=== PATIENT | female | born 1985 | race Two or more races ===

== ENCOUNTER 2023-11-25 20:54 | Emergency (ER) | payer OTHER, SELFPAY ==
[2023-11-25 21:06] VITALS: BP 111/86; PULSE 93; TEMP 37.6; O2SAT 100; BMI 23.6
--- NOTE | 2023-11-25 21:53 | ED.SKABFB1 ---
HPI - Skin/Abscess/Foreign Bdy General Chief complaint: Skin/Abscess/Foreign Body Stated complaint: LUMP Time Seen by Provider: 11/25/23 21:43 Source: patient Mode of arrival: walk-in Limitations: no limitations History of Present Illness HPI narrative: This 38-year-old female who has had axillary abscesses in the past presents for evaluation of a tender abscess in her right axilla. She states she has been using warm compresses but it has not opened up yet. She refuses incision and drainage but states she wishes to have some antibiotics to see if it will help it open up. She also has upper respiratory symptoms with cough, congestion and mild frontal headache. She has no chest pain or shortness of breath. She is being seen in conjunction with her daughter who has similar symptoms. She denies the possibility of . Related Data Home Medications ?Medication ?Instructions ?Recorded ?Confirmed No Known Home Medications 11/25/23 11/25/23 Allergies Allergy/AdvReac Type Severity Reaction Status Date / Time No Known Drug Allergies Allergy Verified 11/25/23 21:06 Review of Systems ROS Status of ROS 10 or more systems reviewed and unremarkable except as noted in history and below Exam Narrative Exam Narrative: Vital signs and Nursing Notes reviewed: Patient is afebrile with a normal pulse, normal blood pressure, she is not hypoxic with pulse ox of 100% on room air General: Awake, alert, oriented, no acute distress, lying comfortably on the stretcher HEENT: Normocephalic atraumatic, mucous membranes are moist and pink, eyes are clear, normal conjunctiva, vision is grossly intact, audible nasal congestion Neck: Supple, no meningeal signs, no anterior or posterior cervical lymphadenopathy Chest: Lungs are clear to auscultation with good air entry, there is no wheezing rhonchi or rales appreciated no accessory muscle use, patient is speaking in complete sentences-no chest wall tenderness to palpation CVS: Regular rate and rhythm S1-S2, no murmurs rubs or gallops, pulses are brisk and equal bilaterally ABD: Soft, nondistended, nontender, no rebound guarding or rigidity, bowel sounds are normal, no pulsatile masses appreciated Extremities: There is a tender, soft, fluctuant abscess in the right axilla, no local cellulitis or lymphangitic streaking noted, no appreciable lymphadenopathy Skin: Axillary abscess as described above Neuro: No focal deficits Constitutional Vital Signs, click to edit/add: Last Vital Signs Temp 99.6 F 11/25/23 21:06 Pulse 93 H 11/25/23 21:06 Resp 18 11/25/23 21:06 BP 111/86 11/25/23 21:06 Pulse Ox 100 11/25/23 21:06 O2 Del Method Room Air 11/25/23 21:06 Course Vital Signs Vital signs: Vital Signs Temperature 99.6 F 11/25/23 21:06 Pulse Rate 93 H 11/25/23 21:06 Respiratory Rate 18 11/25/23 21:06 Blood Pressure 111/86 11/25/23 21:06 Pulse Oximetry 100 11/25/23 21:06 Oxygen Delivery Method Room Air 11/25/23 21:06 Temperature 99.6 F 11/25/23 21:06 Pulse Rate 93 H 11/25/23 21:06 Respiratory Rate 18 11/25/23 21:06 Blood Pressure 111/86 11/25/23 21:06 Pulse Oximetry 100 11/25/23 21:06 Oxygen Delivery Method Room Air 11/25/23 21:06 MDM - Skin/Abscess/Foreign Bdy MDM Narrative Medical decision making narrative: This 38-year-old female who has had abscesses/boils in her axilla in the past presents for evaluation of a right axillary abscess. She has been doing warm compresses but has not opened up. She feels the need for antibiotics at this time. She also has upper respiratory symptoms with nasal congestion and dry cough with a mild headache. She does not know if her respiratory symptoms are related to a viral illness which her daughter is also being seen for if it is related to the abscess in her axilla. The abscess in her axilla is soft, fluctuant but nondraining with no local cellulitis. She flatly refused incision and drainage. She did sign a refusal for procedure and her friend who was with her signed as a witness. I informed her that this was just for legal purposes as draining this abscess would be in her best interest and prevent her from becoming more ill from it if indeed she is feeling ill from the abscess and not just the upper respiratory tract infection. She refused COVID-19 testing she was medicated emergency department with ibuprofen and Augmentin and will be discharged home with prescription for Augmentin and ibuprofen. She was encouraged to continue warm compresses and avoid popping it with anything including a pen or needle. She states that if she was going to do that she would have let me do it here. Her vital signs were stable. Remainder her her physical exam was benign and she denied the possibility of . Discharge Plan Discharge Chief Complaint: Skin/Abscess/Foreign Body Clinical Impression: Abscess of axilla, right, Upper respiratory infection Patient Disposition: Home, Self-Care Time of Disposition Decision: 22:16 Condition: Good Prescriptions / Home Meds: No Action No Known Home Medications Print Language: Croatian Instructions: Upper Respiratory Infection (ED), Abscess (ED) Referrals: Physician,Non-Staff, MD [Primary Care Provider] - 1 week
[2023-11-25] MEDS: AMOXICILLIN/POT CLAV 875-125 MG TABLET 1 TAB PO (22:16)
[2023-11-25] MEDS: IBUPROFEN 600 MG TABLET PO (22:16)
== END 2023-11-25 22:35 | disposition home or self-care (01) ==
PROVIDERS: Emergency Provider Emergency Medicine
DX: L02.411 Cutaneous abscess of right axilla (principal); J06.9 Acute upper respiratory infection, unspecified
CPT/HCPCS: 87811; 99283

== ENCOUNTER 2024-08-25 13:56 | Emergency (ER) | payer OTHER, SELFPAY ==
[2024-08-25 14:05] VITALS: BP 151/97; PULSE 76; TEMP 36.6; O2SAT 99; BMI 24.6
--- NOTE | 2024-08-25 14:27 | CT_ITS ---
The [address] [address] Patient Name: KANU BARRY MRN: [facility]:[id number] date: 1985 Sex: F Assigned Patient Location: ED.MAIN Current Patient Location: ED.MAIN Accession/Order Number: [id number] Exam Date: 08/25/2024 15:22 Report Date: 08/25/2024 15:24 At the request of: TIANA SOLIZ NP Procedure: CT head/brain wo con Unenhanced head CT TECHNIQUE: Contiguous axial imaging of the head. The CT exam was performed using one or more the following dose reduction techniques: Automated exposure control, adjustment of the MA and/or Kv according to patient size, or use of the iterative reconstruction technique. COMPARISON: None HISTORY: Headache. Left face numbness. Weakness. Fever. VENTRICLES: Within normal limits ATROPHY: None BRAIN PARENCHYMA: Adequate munoz-white matter differentiation identified. HEMORRHAGE: None HERNIATION: No mass effect or herniation INFARCTION: No recent vascular distribution infarction is seen. EXTRA-AXIAL FLUID COLLECTIONS None MIDBRAIN: Unremarkable MARILOU: Unremarkable MEDULLA: Unremarkable SINUSES: Ethmoid sinus disease ORBITS: Grossly unremarkable MASTOIDS: Unremarkable BONY STRUCTURES Intact ADDITIONAL FINDINGS: CT/CT head/brain wo con IMPRESSION: No acute intracranial findings. Ethmoid sinus disease. Impression dictated by: Nate Nguyen M.D. 08/25/2024 3:24 PM Dictation Location: [place] [address] Electronically authenticated by: [id number] Y Date: 08/25/2024 15:24
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
[2024-08-25 14:56] LABS: Hematocrit 41.8 % (36.0-48.0); Hemoglobin 13.7 g/dL (12.0-16.0); Immature Granulocytes Abs Auto 0.00 10^3/uL (0.00-0.03); Immature Granulocytes Pct Auto 0.0 % (0.0-0.5); Lymphocytes Absolute Auto 2.4 10^3/uL (1.2-3.8); Mean Corpuscular HGB Conc 32.8 g/dL (29.9-35.2); Mean Corpuscular Hemoglobin 31.3 pg (26.7-34.0); Mean Corpuscular Volume 95.4 fL (81.0-99.0); Platelet Count 369 10^3/uL (150-450); Red Blood Count 4.38 10^6/uL (4.20-5.40); White Blood Count 4.6 10^3/uL (4.0-11.0)
[2024-08-25] MEDS: DIPHENHYDRAMINE HCL 50 MG/ML VIAL 25 MG IVP (15:00)
[2024-08-25] MEDS: DEXAMETHASONE SOD PHOS 10 MG/ML VIAL IV (15:00)
[2024-08-25] MEDS: METOCLOPRAMIDE HCL 10 MG/2 ML VIAL IVP (15:00)
[2024-08-25] MEDS: 0.9 % SODIUM CHLORIDE 1,000 ML 1000 ML IV (15:00)
[2024-08-25 15:12] LABS: Alanine Aminotransferase 72 U/L (14-59); Albumin Globulin Ratio 0.7; Albumin Level 3.0 g/dL (3.4-5.0); Alkaline Phosphatase 114 U/L (46-116); Anion Gap 10.4; Aspartate Amino Transferase 65 U/L (15-37); Blood Urea Nitrogen 13.0 mg/dL (7.0-18.0); Calcium 9.1 mg/dL (8.5-10.1); Carbon Dioxide 28.5 mmol/L (21.0-32.0); Chloride 105 mmol/L (98-107); Estimated GFR (African America >60 (>=60 mL/min/1.73m^2); Estimated GFR (Non-African Ame >60 (>=60 mL/min/1.73m^2); Globulin 4.2 g/dL; Glucose 67 mg/dL (74-106); Potassium 3.9 mmol/L (3.5-5.1); Sodium 140 mmol/L (136-145); Total Protein 7.2 g/dL (6.4-8.2)
== END 2024-08-25 15:55 | disposition home or self-care (01) ==
PROVIDERS: Nurse Practitioner; Emergency Provider Emergency Medicine
DX: R51.9 Headache, unspecified (principal); J32.2 Chronic ethmoidal sinusitis
CPT/HCPCS: 36415; 70450; 80053; 85025; 96374; 96375; 99285; J1100; J1200; J2765